=== PATIENT | female | born 1980 | race Caucasian/White ===

== ENCOUNTER 2016-11-14 22:57 | Observation (INO) ==
[2016-11-14 23:44] LABS: Basophils # 0.1 K/mcL (0.0-0.2); Basophils % 0.7 %; Eosinophils # 0.1 K/mcL (0.0-0.6); Hematocrit 37.1 % (35.3-44.9); Hemoglobin 12.2 g/dL (11.5-15.4); Immature Granulocytes % 0.3 % (0-4); Immature Platelets 2.6 % (1.1-6.1); Lymphocytes # 3.3 K/mcL (0.6-4.6); Lymphocytes % 33.5 %; Mean Corpuscular HGB Conc 32.9 g/dL (31.6-35.5); Mean Corpuscular Hemoglobin 26.9 pg (28.0-33.3); Mean Corpuscular Volume 81.9 fL (83.0-100.0); Mean Platelet Volume 9.3 fL (9.4-12.4); Monocytes # 0.7 K/mcL (0.0-1.3); Monocytes % 7.5 %; Neutrophils # 5.7 K/mcL (1.6-8.9); Platelet Count 292 K/mcL (140-400); Red Blood Count 4.53 M/mcL (3.82-4.97); Red Cell Distribution Width 12.8 % (11.5-14.5)
[2016-11-14 23:54] LABS: VBG HCO3 24.4 mEq/L (21-27); VBG PH 7.49 pH Units (7.32-7.42)
[2016-11-14 23:56] LABS: BUN/Creatinine Ratio 19 (6-26); Blood Urea Nitrogen 16 mg/dL (7-20); Calcium 9.5 mg/dL (8.6-10.8); Carbon Dioxide 22 mEq/L (19-29); Chloride 105 mEq/L (98-109); Glucose 91 mg/dL (70-99); Osmolality,Calculated 287 (280-300); Potassium 3.8 mEq/L (3.5-4.5); Sodium 138 mEq/L (136-145); eGFR For African Americans > 60 (> 60); eGFR For Non-African Americans > 60 (> 60)
--- NOTE | 2016-11-14 23:57 | Emergency Department Note ---
Disposition Clinical Impression: Bigeminy, Syncope and collapse Disposition: Admitted As Inpatient Condition: Fair Time of Disposition: 01:41 Syncope HPI - General Chief Complaint: ED Syncope Stated Complaint: passed out Time Seen by Provider: 11/14/16 23:16 Source: EMS Limitations: altered mental status Nursing Notes Reviewed: Yes Vital Signs Reviewed: Yes - History of Present Illness HPI Narrative: Patient is a 36 female who presents with an episode of witnessed syncope today. 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 Patient collapsed, landing on the left hip. She did not hit her head. Patient was accompanied by her work partner who witnessed the syncopal episode. Report is given to me by the patient's work partner. Patient lost consciousness for 10-15 minutes. Vitals were normal. EKG revealed bigeminy. Patient was awakened with verbal stimulus. Upon arousal , patient had a red face, and bloodshot eyes, and confusion. Patient denies loss of bowel function, loss of bladder function, tongue biting, or myoclonic jerks. Patient admits to one episode of dizziness today in which she states that she felt loss of balance. She states that she feels nauseated at this time. She denies fever, chills, dizziness, headache, blurry vision, chest pain , palpitations, racing heart, she shortness of breath, cough, wheeze, abdominal pain, vomiting, diarrhea, dysuria, hematuria, vaginal discharge. Patient has a known history of bigeminy. Patient states that she usually knows when she is going into bigeminy. Usually, she experiences substernal chest pain, left jaw and left neck pain. This episode was different from previous episodes of bigeminy in that she collapsed without warning. She follows with Dr. Saul, assistant professor of business at [facility]. Patient states that she had a prior ECHO and prior stress test at [facility]. Pt Subjective Complaint: loss of consciousness, felt faint Onset (ago): hour(s) Number of episodes: 1 Duration: minutes(s) (10-15) Description of Event: post-event confusion Prodromal Symptoms: lightheaded Witnessed: yes - by EMS Context: standing up Injuries Sustained Associated with Event: other (Left hip and left shoulder) Current Symptoms: lightheaded, nausea History: other (known history of transient bigeminy) Associated trauma secondary to event: No - Related Data Allergies Allergy/AdvReac Type Severity Reaction Status Date / Time Penicillins Allergy Vomiting Verified 11/14/16 23:12 shellfish derived Allergy Swelling Verified 11/14/16 23:13 of Lip/Tongue/Throat All systems ED: reviewed and negative except as stated. Constitutional: Reports: as per HPI Eyes: Reports: as per HPI ENT ED: Reports: as per HPI Cardiovascular: Reports: as per HPI Respiratory: Reports: as per HPI Gastrointestinal: Reports: as per HPI Genitourinary: Reports: as per HPI Musculoskeletal: Reports: as per HPI Integumentary: Reports: as per HPI Neurological: Reports: as per HPI Psychiatric: Reports: as per HPI Endocrine: Reports: as per HPI Hematological/Lymphatic: Reports: as per HPI Allergic/Immunologic: Reports: as per HPI Past Medical History - Past Medical History Medical history: Reports: other Psychiatric history: Reports: bipolar 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 Absent: tenderness, meningismus, lymphadenopathy, thyromegaly - Chest Chest inspection: Present: normal inspection, symmetric chest wall rise. Absent : tenderness - Respiratory Respiratory exam: Present: normal lung sounds bilaterally. Absent: respiratory distress, wheezes, stridor, accessory muscle use - Cardiovascular Cardiovascular exam: Present: regular rate, normal rhythm, +S1, +S2. Absent: systolic murmur, diastolic murmur - Abdominal Exam Abdominal exam: Present: soft, Non-Tender, normal bowel sounds. Absent: distention, guarding, rebound, rigidity - Extremities Exam Extremities exam: Present: normal inspection, full ROM. Absent: pedal edema - Back Exam Back exam: Present: normal inspection, full ROM - Neurological Exam Neurological exam: Present: alert, oriented X3, CN II-XII intact, reflexes normal - Psychiatric Psychiatric exam: Present: normal affect, normal mood - Skin Skin exam: Present: warm, dry, intact Course Vital Signs Temperature 98.3 F 11/14/16 22:59 Pulse Rate 73 11/14/16 22:59 Respiratory Rate 14 11/14/16 22:59 Blood Pressure 122/84 11/14/16 22:59 O2 Sat by Pulse Oximetry 100 11/14/16 22:59 Temperature 98.3 F 11/14/16 22:59 Pulse Rate 76 11/15/16 01:11 Respiratory Rate 18 11/15/16 02:08 Blood Pressure 108/61 11/15/16 02:08 O2 Sat by Pulse Oximetry 100 11/15/16 01:11 Oxygen Delivery Oxygen Delivery Room Air Syncope - MDM Narrative Medical decision making narrative: Fiorella is a 36-year-old female who presented with one episode of syncope. Patient lost consciousness for 10-15 minutes and had no loss of bowel or bladder function, tongue biting, myoclonic jerks. Patient was confused upon arousal. Patient presented with a rhythm strip from the EMS which demonstrated bigeminy. Should has known history of bigeminy. The concern is that she had an episode of ventricular arrhythmia leading to syncope. EKG obtained in the ED was normal sinus rhythm at a rate of 65 bpm, no evidence of ST segment or T- wave changes. Patient will be placed on telemetry and admitted to hospitalist, Dr. Harman for further evaluation. - Lab Data Lab results reviewed: Yes I reviewed the patient's lab results. Result diagrams: 11/14/16 23:36 11/14/16 23:36 Lab Results 11/14/16 11/14/16 11/14/16 Range/Units 23:36 23:36 23:36 WBC 9.9 (4.3-11.1) K/mcL RBC 4.53 (3.82-4.97) M/mcL Hgb 12.2 (11.5-15.4) g/dL Hct 37.1 (35.3-44.9) % MCV 81.9 L (83.0-100.0) fL MCH 26.9 L (28.0-33.3) pg MCHC 32.9 (31.6-35.5) g/dL RDW 12.8 (11.5-14.5) % Plt Count 292 (140-400) K/mcL MPV 9.3 L (9.4-12.4) fL Immature Gran % 0.3 (0-4) % Seg Neutrophils % 57.0 % Lymphocytes % 33.5 % Monocytes % 7.5 % Eosinophils % 1.0 % Basophils % 0.7 % Neutrophils # 5.7 (1.6-8.9) K/mcL Lymphocytes # 3.3 (0.6-4.6) K/mcL Monocytes # 0.7 (0.0-1.3) K/mcL Eosinophils # 0.1 (0.0-0.6) K/mcL Basophils # 0.1 (0.0-0.2) K/mcL Immature Plt Fraction 2.6 (1.1-6.1) % VBG pH (7.32-7.42) pH Units VBG pCO2 (41-51) mmHg VBG pO2 (25-40) mmHg VBG HCO3 (21-27) mEq/L Sodium 138 (136-145) mEq/L Potassium 3.8 (3.5-4.5) mEq/L Chloride 105 (98-109) mEq/L Carbon Dioxide 22 (19-29) mEq/L BUN 16 (7-20) mg/dL Creatinine 0.83 (0.57-1.11) mg/dL Est GFR ( Amer) > 60 (> 60) Est GFR (Non-Af Amer) > 60 (> 60) BUN/Creatinine Ratio 19 (6-26) Glucose 91 (70-99) mg/dL Calculated Osmolality 287 (280-300) Lactic Acid (0.5-2.2) mmol/L Calcium 9.5 (8.6-10.8) mg/dL Troponin I 0.01 (0-0.03) ng/mL Urine Color (Yellow) Urine Clarity (Clear) Urine pH (5.0-8.0) pH Units Ur Specific [place] (1.010-1.025) Urine Protein (Neg-Trace) mg/dL Urine Glucose (UA) (Normal) mg/dL Urine Ketones (Negative) mg/dL Urine Blood (Negative) Urine Nitrite (Negative) Urine Bilirubin (Negative) Urine Urobilinogen (Normal) mg/dL Ur Leukocyte Esterase (Negative) Urine Microscopic RBC (0-3) per hpf Urine Microscopic WBC (0-3) per hpf Ur Squamous Epith Cells (None-Few) per lpf Urine Bacteria (None-Few) per hpf Hyaline Casts (None-Few) per lpf Ur Culture Indicated? (NO) Salicylates < 5.0 L (15-30) mg/dL Urine Opiates Screen (Vnmmtw=300) ng/mL Acetaminophen < 1.0 L (10-30) mcg/mL Ur Barbiturates Screen (Utdshb=838) ng/mL Ur Phencyclidine Scrn (Cutoff=25) ng/mL Ur Amphetamines Screen (Hcqpag=3266) ng/mL U Benzodiazepines Scrn (Ntblib=837) ng/mL Urine Cocaine Screen (Cutoff= 300) ng/mL U Marijuana (THC) Screen (Cutoff = 50) ng/mL Ethyl Alcohol < 10 (0-10) mg/dL 11/14/16 11/14/16 11/15/16 Range/Units 23:36 23:36 00:15 WBC (4.3-11.1) K/mcL RBC (3.82-4.97) M/mcL Hgb (11.5-15.4) g/dL Hct (35.3-44.9) % MCV (83.0-100.0) fL MCH (28.0-33.3) pg MCHC (31.6-35.5) g/dL RDW (11.5-14.5) % Plt Count (140-400) K/mcL MPV (9.4-12.4) fL Immature Gran % (0-4) % Seg Neutrophils % % Lymphocytes % % Monocytes % % Eosinophils % % Basophils % % Neutrophils # (1.6-8.9) K/mcL Lymphocytes # (0.6-4.6) K/mcL Monocytes # (0.0-1.3) K/mcL Eosinophils # (0.0-0.6) K/mcL Basophils # (0.0-0.2) K/mcL Immature Plt Fraction (1.1-6.1) % VBG pH 7.49 H (7.32-7.42) pH Units VBG pCO2 32 L (41-51) mmHg VBG pO2 128 H (25-40) mmHg VBG HCO3 24.4 (21-27) mEq/L Sodium (136-145) mEq/L Potassium (3.5-4.5) mEq/L Chloride (98-109) mEq/L Carbon Dioxide (19-29) mEq/L BUN (7-20) mg/dL Creatinine (0.57-1.11) mg/dL Est GFR ( Amer) (> 60) Est GFR (Non-Af Amer) (> 60) BUN/Creatinine Ratio (6-26) Glucose (70-99) mg/dL Calculated Osmolality (280-300) Lactic Acid 0.5 (0.5-2.2) mmol/L Calcium (8.6-10.8) mg/dL Troponin I (0-0.03) ng/mL Urine Color Yellow (Yellow) Urine Clarity Cloudy A (Clear) Urine pH 6.5 (5.0-8.0) pH Units Ur Specific [place] 1.015 (1.010-1.025) Urine Protein Negative (Neg-Trace) mg/dL Urine Glucose (UA) Normal (Normal) mg/dL Urine Ketones Negative (Negative) mg/dL Urine Blood Negative (Negative) Urine Nitrite Negative (Negative) Urine Bilirubin Negative (Negative) Urine Urobilinogen Normal (Normal) mg/dL Ur Leukocyte Esterase Trace H (Negative) Urine Microscopic RBC 0-3 (0-3) per hpf Urine Microscopic WBC 3-5 H (0-3) per hpf Ur Squamous Epith Cells Many H (None-Few) per lpf Urine Bacteria Few (None-Few) per hpf Hyaline Casts None Seen (None-Few) per lpf Ur Culture Indicated? YES A (NO) Salicylates (15-30) mg/dL Urine Opiates Screen (Roguns=661) ng/mL Acetaminophen (10-30) mcg/mL Ur Barbiturates Screen (Jemdmj=700) ng/mL Ur Phencyclidine Scrn (Cutoff=25) ng/mL Ur Amphetamines Screen (Pifimg=3373) ng/mL U Benzodiazepines Scrn (Hbwbre=392) ng/mL Urine Cocaine Screen (Cutoff= 300) ng/mL U Marijuana (THC) Screen (Cutoff = 50) ng/mL Ethyl Alcohol (0-10) mg/dL 11/15/16 Range/Units 00:15 WBC (4.3-11.1) K/mcL RBC (3.82-4.97) M/mcL Hgb (11.5-15.4) g/dL Hct (35.3-44.9) % MCV (83.0-100.0) fL MCH (28.0-33.3) pg MCHC (31.6-35.5) g/dL RDW (11.5-14.5) % Plt Count (140-400) K/mcL MPV (9.4-12.4) fL Immature Gran % (0-4) % Seg Neutrophils % % Lymphocytes % % Monocytes % % Eosinophils % % Basophils % % Neutrophils # (1.6-8.9) K/mcL Lymphocytes # (0.6-4.6) K/mcL Monocytes # (0.0-1.3) K/mcL Eosinophils # (0.0-0.6) K/mcL Basophils # (0.0-0.2) K/mcL Immature Plt Fraction (1.1-6.1) % VBG pH (7.32-7.42) pH Units VBG pCO2 (41-51) mmHg VBG pO2 (25-40) mmHg VBG HCO3 (21-27) mEq/L Sodium (136-145) mEq/L Potassium (3.5-4.5) mEq/L Chloride (98-109) mEq/L Carbon Dioxide (19-29) mEq/L BUN (7-20) mg/dL Creatinine (0.57-1.11) mg/dL Est GFR ( Amer) (> 60) Est GFR (Non-Af Amer) (> 60) BUN/Creatinine Ratio (6-26) Glucose (70-99) mg/dL Calculated Osmolality (280-300) Lactic Acid (0.5-2.2) mmol/L Calcium (8.6-10.8) mg/dL Troponin I (0-0.03) ng/mL Urine Color (Yellow) Urine Clarity (Clear) Urine pH (5.0-8.0) pH Units Ur Specific [place] (1.010-1.025) Urine Protein (Neg-Trace) mg/dL Urine Glucose (UA) (Normal) mg/dL Urine Ketones (Negative) mg/dL Urine Blood (Negative) Urine Nitrite (Negative) Urine Bilirubin (Negative) Urine Urobilinogen (Normal) mg/dL Ur Leukocyte Esterase (Negative) Urine Microscopic RBC (0-3) per hpf Urine Microscopic WBC (0-3) per hpf Ur Squamous Epith Cells (None-Few) per lpf Urine Bacteria (None-Few) per hpf Hyaline Casts (None-Few) per lpf Ur Culture Indicated? (NO) Salicylates (15-30) mg/dL Urine Opiates Screen Negative (Rloumm=338) ng/mL Acetaminophen (10-30) mcg/mL Ur Barbiturates Screen Negative (Rqvikh=700) ng/mL Ur Phencyclidine Scrn Negative (Cutoff=25) ng/mL Ur Amphetamines Screen Negative (Viophg=8701) ng/mL U Benzodiazepines Scrn Negative (Nruzza=658) ng/mL Urine Cocaine Screen Negative (Cutoff= 300) ng/mL U Marijuana (THC) Screen Negative (Cutoff = 50) ng/mL Ethyl Alcohol (0-10) mg/dL - EKG Data EKG attestation: Yes I reviewed and interpreted this EKG. EKG results narrative: EKG was normal sinus rhythm at a rate of 65 bpm, no evidence of ST segment or T- wave changes. Patient presented with a rhythm strip from the EMS which demonstrated bigeminy. 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 She suddenly became completely unresponsive and was apparently unresponsive for an extended period of time. When backup EMS arrived she was in bigeminy when placed on the budget and policy analyst. She was in bigeminy on arrival here but this resolved prior to obtaining an EKG which was normal. She does have a prior history of bigeminy but states usually she has symptoms of feeling weak and lightheaded with some discomfort in her chest and neck whenever she goes into the bigeminy. Tonight she had no symptoms prior to the syncope. After the syncopal episode patient states that she just feels extremely tired and wiped out and groggy. She states she feels like she is in agreement With All the way. No headache. On examination patient is a well-developed well-nourished well-appearing female in no acute distress. She is alert and oriented 3. There is no cyanosis or diaphoresis. Chest is nontender to palpation. Breath sounds are clear and equal bilaterally. Heart regular rate and rhythm. Abdomen soft and nontender with normal bowel sounds. No gross focal neurological deficits. EKG normal. Labs reviewed and unremarkable. The hospitalist, Dr. Harman, was consulted and accepted admission of the patient.
[2016-11-15 00:08] LABS: Acetaminophen < 1.0 mcg/mL (10-30); Ethanol < 10 mg/dL (0-10); Salicylate < 5.0 mg/dL (15-30)
[2016-11-15 00:31] LABS: Bilirubin,Urine Negative (Negative); Blood,Urine Negative (Negative); Clarity,Urine Cloudy (Clear); Color,Urine Yellow (Yellow); Glucose,Urine (UA) Normal (Normal); Ketones,Urine Negative (Negative); Leukocyte Esterase,Urine Trace (Negative); Nitrite,Urine Negative (Negative); PH,Urine 6.5 pH Units (5.0-8.0); Protein,Urine Negative (Neg-Trace); Specific Gravity,Urine 1.015 (1.010-1.025); Urobilinogen,Urine Normal (Normal)
[2016-11-15 00:33] LABS: Bacteria,Urine Few per hpf (None-Few); Hyaline Casts,Urine None Seen per lpf (None-Few); RBC,Urine 0-3 per hpf (0-3); Squamous Epithelial Cell,Urine Many per lpf (None-Few)
[2016-11-15 00:37] LABS: Amphetamine Screen,Urine Negative ng/mL (Cutoff=1000); Barbiturate Screen,Urine Negative ng/mL (Cutoff=200); Benzodiazepines Screen,Urine Negative ng/mL (Cutoff=200); Cannabinoid Screen,Urine Negative ng/mL (Cutoff = 50); Cocaine Screen,Urine Negative ng/mL (Cutoff= 300); Opiate Screen,Urine Negative ng/mL (Cutoff=300); Phencyclidine Screen,Urine Negative ng/mL (Cutoff=25)
[2016-11-15] MEDS ORDERED: Naloxone 0.4 MG/ML INJ IVP PRN ×2 (07:34→08:32)
--- NOTE | 2016-11-15 08:35 | Internal Med History&Physical ---
Date of Encounter: 11/15/16 Time of Encounter: 08:33 Assessment and Plan (1) Syncope and collapse Current visit: Yes Status: Acute passed out for 10-15 mins yest. h/o bigeminy, unclear if she had any other arrhythmias that led to syncope she remaiened confused for sometime after regaining consciousness. will consult cardiology for any further intervention, will start low dose BB metoprolol of 12.5 mg bid for now along with aspirin for now until further recommendations from cardio. will also order ECHO. noted to be in and out of bigeminy on tele. monitor BP as it is borderline. strong family h/o bigeminy in father's side. no other signs or symptoms s/o seizures, denies preceding chest pain or sob, no other illness prior to the event. however will get a CT head to complete the work up. continue tele. (2) Bigeminy Current visit: Yes Status: Acute as above currently in NSR. Internal Medicine - H&P: HPI Chief complaint: syncope Admitted From: Home Plans for Post Hospital Care: Home History of present illness: Ms. Hernandez is a 36 year old female who presents with an episode of witnessed syncope today. 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 Patient collapsed, landing on the left hip. She did not hit her head. Patient was accompanied by her work partner who witnessed the syncopal episode. Patient lost consciousness for 10-15 minutes as per the partneer. Vitals were normal. EKG revealed bigeminy. Patient was awakened with verbal stimulus. Upon arousal, patient had a red face, and bloodshot eyes, and confusion. Patient denies loss of bowel function, loss of bladder function, tongue biting, or myoclonic jerks. Patient admits to one episode of dizziness today in which she states that she felt loss of balance. She states that she feels nauseated at this time. She denies fever, chills, dizziness, headache, blurry vision, chest pain, palpitations, racing heart, she shortness of breath, cough, wheeze, abdominal pain, vomiting, diarrhea, dysuria , hematuria, vaginal discharge. Patient has a known history of bigeminy. Patient states that she usually knows when she is going into bigeminy. Usually , she experiences substernal chest pain, left jaw and left neck pain. This episode was different from previous episodes of bigeminy in that she collapsed without warning. She follows with Dr. Saul, lease administration analyst at [facility]. Patient states that she had a prior ECHO and prior stress test at [facility]. She says she never needed any further testing and is being "observed". Past Med Surg Social Fam HX - Past Medical History Medical history: other Psychiatric history: bipolar - Past Surgical History Surgical History: cholecystectomy, other - Social History Smoking Status: Current every day smoker Smokeless Tobacco Status: No Alcohol use: none - Family History Father Adopted: [place]: [place] Age: 64 Family Member Ethnicity: Non- Living Status: Still Living Hx Family Cardiac Disorders: Yes (BIGEMINY; HIGH CHOLESTEROL) Hx Family Respiratory Disorders: No Hx Family Cancer: No Hx Family GI Disorders: Yes (GERD) Hx Family Genitourinary Disorders: No Hx Family Endocrine Disorder: No Hx Family Musculoskeletal Disorders: No Hx Family Neuromuscular Disorders: No Hx Family Neurologic Disorders: No Hx Family HEENT Disorders: No Hx Family Autoimmune Disorders: No Hx Family Reproductive Disorders: No Hx Family Psychosocial Disorders: No Hx Family Medical Disorders: No Internal Medicine - H&P: Meds Allergies Penicillins Allergy (Verified 11/14/16 23:12) Vomiting shellfish derived Allergy (Verified 11/14/16 23:13) Swelling of Lip/Tongue/Throat All Systems PM: A 10-system review of systems was performed and is negative for pertinent findings except as documented above in the HPI. - Constitutional Constitutional: as per HPI - EENT Eyes: as per HPI Ears: as per HPI Nose, mouth and throat: as per HPI - Breasts Breasts: as per HPI - Cardiovascular Cardiovascular ROS IM: as per HPI - Respiratory Respiratory: as per HPI - Gastrointestinal Gastrointestinal: as per HPI - Genitourinary Genitourinary: as per HPI Menstruation: as per HPI - Constitutional Vitals: Temp Pulse Resp BP Pulse Ox 98.7 F 63 15 121/72 98 11/15/16 07:37 11/15/16 07:37 11/15/16 07:37 11/15/16 07:37 11/15/16 02:40 General appearance: Present: A&O X 3, no acute distress Exam: neck- supple chest- b/l clear, no added sounds CVS-s1 and s2, no mr//g abd- soft, non tender, bs are present ex- no edema Internal Med - H&P Results - Labs CBC & Chem 7: 11/14/16 23:36 11/14/16 23:36
[2016-11-15] MEDS ORDERED: Ondansetron ODT 4 MG TAB.RAPDIS SL PRN (11:43)
[2016-11-15] MEDS ORDERED: *HR* Enoxaparin 30 MG/0.3 ML SYRINGE SQ ONE (11:46)
[2016-11-15] MEDS: Aspirin 81 MG TAB.CHEW PO SCH (13:00)
--- NOTE | 2016-11-15 16:15 | Cardiology Consult Note ---
Date of Encounter: 11/15/16 Time of Encounter: 16:00 Assessment and Plan (1) Syncope and collapse Current Visit: Yes Status: Acute Symptoms do not seem cardiac in etiology given altered mental status for 15 minutes after event. Consider neurology consult. Echocardiogram pending. (2) Bigeminy Current Visit: Yes Status: Acute Episodes of bigeminy noted per telemetry review. Reports she is symptomatic while in bigeminy--neck/chest discomfort. Recommend avoidance of caffeinated beverages, reports excess of 4 soda/coffees per day. Recommend betablocker, HM discharge to assess PVC burden, and close outpatient follow-up with Religion Department Chair at [facility]. Discussion w patient/family: The assessment and plan as outlined above was discussed with the patient and/or family members who expressed understanding and agreement. All questions were answered. Thank you for involving us in the care of your patient. Please call with any questions. The patient will be discussed with Dr. Bertha Horne; changes to be made accordingly. History of Present Illness Consult date: 11/15/16 Requesting physician: Joseph Pittman Consult reason: Syncope Chief complaint: Syncope History of present illness: Ms. Hernandez is a 36 year old female with PMH significant for bigeminy and bipolar disorder who presented to the ED after a syncope episode that occurred yesterday. 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 From her partner report she fell down and briefly lost consciousness, however remained "confused/ not with it" for up to 15 minutes. Past Med Surg Social Fam HX - Past Medical History Attestation: Yes The following information was validated with the patient. Source: patient Medical history: other (bigeminy) Psychiatric history: bipolar - Past Surgical History Surgical History: cholecystectomy, other - Social History Smoking Status: Current every day smoker Smokeless Tobacco Status: No Alcohol use: none - Family History Father Adopted: [place]: [place] Age: 64 Family Member Ethnicity: Non- Living Status: Still Living Hx Family Cardiac Disorders: Yes (BIGEMINY; HIGH CHOLESTEROL) Hx Family Respiratory Disorders: No Hx Family Cancer: No Hx Family GI Disorders: Yes (GERD) Hx Family Genitourinary Disorders: No Hx Family Endocrine Disorder: No Hx Family Musculoskeletal Disorders: No Hx Family Neuromuscular Disorders: No Hx Family Neurologic Disorders: No Hx Family HEENT Disorders: No Hx Family Autoimmune Disorders: No Hx Family Reproductive Disorders: No Hx Family Psychosocial Disorders: No Hx Family Medical Disorders: No Medications and Allergies Etodolac [Lodine] 400 mg PO BID 11/15/16 [History] Quetiapine Fumarate [Seroquel] 50 mg PO TID 11/15/16 [History] Sertraline [Zoloft] 50 mg PO DAILY 11/15/16 [History] Allergies Penicillins Allergy (Verified 11/14/16 23:12) Vomiting shellfish derived Allergy (Verified 11/14/16 23:13) Swelling of Lip/Tongue/Throat All Systems Review: A 10-system review of systems was performed and is negative for pertinent findings except as documented above in the HPI. - Cardiovascular Cardiovascular: as per HPI Physical Examination Vital Signs, Last 4 Hours Pulse BP 11/15/16 14:40 81 111/59 General: Conversant, No Apparent Distress HEENT: Atraumatic, Normocephaly, Mucus Membranes Moist Cardiac: Reg Rate and Rhythm, Normal S1 and S2 Lungs: Normal Breath Sounds, No Wheeze, Rales, Rhonchi Neuro: Alert and responsive, No focal deficits noted Abdomen: Soft, Non-Tender Skin: No rashes noted on visualized skin Musculoskeletal: No Chest Wall Tenderness Extremities: No Edema, Normal Pulses Results 11/14/16 23:36 11/14/16 23:36 Active Medications Aspirin (Aspirin) 81 mg PO DAILY [facility] Stop: 05/17/17 12:01 Last Admin: 11/15/16 13:00 Dose: 81 mg Enoxaparin Sodium (Lovenox) 30 mg SQ 0600 [facility] PRN Reason: Protocol Stop: 05/18/17 06:01 Metoprolol Tartrate (Lopressor) 12.5 mg PO BID [facility] Stop: 05/17/17 12:01 Last Admin: 11/15/16 13:00 Dose: 12.5 mg Naloxone HCl (Narcan) 0.4 mg IVP Q2MIN PRN PRN Reason: Opioid Reversal Stop: 05/17/17 08:33 Ondansetron HCl (Zofran Odt) 4 mg SL Q4HR PRN PRN Reason: Nausea And Vomiting Stop: 05/17/17 11:44 - Imaging and Cardiology Echo: pending Other Results: 12 hour tele: avg HR=76 SR. Episodes of bigeminy noted. - EKG Interpretation EKG results cardiology: personally reviewed Consult Discharge Plan - Plan Referrals: Jimbo Vides DO [Primary Care Provider] -
--- NOTE | 2016-11-15 18:00 | ECHO - Doppler Report ---
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 Normal left ventricular size and systolic function. Normal diastolic function of the left ventricle. Normal right ventricular size and function. No significant valvular dysfunction. Left Ventricular Wall Motion: Rest Echo Findings All wall segments showed normal motion. Findings: Study Quality * Technically adequate exam. ECG Findings * Sinus rhythm with PVCs. Left Ventricle * LVEF 65%. * Normal LV chamber size, wall thickness and function. * Normal left ventricular diastolic function. Right Ventricle * Normal right ventricular structure and function. Left Atrium * Normal left atrial size. Right Atrium * Normal right atrial size. Interatrial Septum * Interatrial septum not well evaluated. Aortic Valve * Trileaflet aortic valve. * Trileaflet aortic valve with normal function. * No aortic stenosis. * No aortic regurgitation. Mitral Valve * Normal mitral valve structure and function. * No mitral stenosis. * No mitral regurgitation. Tricuspid Valve * Normal tricuspid valve structure and function. * Trace tricuspid regurgitation. * Unable to estimate RVSP due to lack of TR jet. Pulmonic Valve * Pulmonic valve is not well visualized. Aorta * Normally sized aortic root. Pericardium * The pericardium appears normal. IVC * Normal IVC dimensions and inspiratory collapse. History Measurements: BP: 103/ 54 2D Normal Values RVIDd: 2.90 cm <2.7 cm IVSd: .80 cm 0.6 - 1.0 cm LVIDd: 4.60 cm 3.7 - 5.6 cm LVPWd: 1.00 cm 0.6 - 1.1 cm LVIDs: 3.50 cm 1.5 - 3.6 cm AO: 3.00 cm < 4.0 cm LA: 3.70 cm 2.0 - 4.0cm %FS: 23.90 cm >25 % LA volume: 48 Mitral Valve Dec Time:206.00 msec Peak E:.58 m/sec Peak A:.72 m/sec E/A Ratio:0.8 Tricuspid Valve TV Regurg Peak Grad: 16.00mmHg TV Regurg Peak Lee: 2.00m/sec Updated by Bertha Horne MD, [facility] on 11/15/2016 5:55:07 PM electronically signed on 11/15/2016 5:55:31 PM with status of Final Wall Motion Ocasio: 1=Normal, 2=Hypokinesis, 3=Akinesis, 4=Dyskinesis, 5=Aneurysmal, 6=Hyperkinetic, X=Not Visualized (Blank)=Missing
[2016-11-16 03:47] LABS: Basophils # 0.1 K/mcL (0.0-0.2); Basophils % 0.8 %; Eosinophils # 0.1 K/mcL (0.0-0.6); Eosinophils % 1.2 %; Hematocrit 36.3 % (35.3-44.9); Immature Granulocytes % 0.3 % (0-4); Lymphocytes # 3.4 K/mcL (0.6-4.6); Lymphocytes % 35.3 %; Mean Corpuscular HGB Conc 33.1 g/dL (31.6-35.5); Mean Corpuscular Hemoglobin 27.3 pg (28.0-33.3); Mean Corpuscular Volume 82.7 fL (83.0-100.0); Mean Platelet Volume 9.9 fL (9.4-12.4); Monocytes # 0.7 K/mcL (0.0-1.3); Monocytes % 7.3 %; Neutrophils # 5.3 K/mcL (1.6-8.9); Platelet Count 278 K/mcL (140-400); Red Blood Count 4.39 M/mcL (3.82-4.97); Segmented Neutrophils % 55.1 %
[2016-11-16 04:03] LABS: BUN/Creatinine Ratio 20 (6-26); Blood Urea Nitrogen 17 mg/dL (7-20); Carbon Dioxide 23 mEq/L (19-29); Chloride 108 mEq/L (98-109); Chol/HDL Ratio 3.7 (0-4.9); Cholesterol 161 mg/dL (< 200); Glucose 89 mg/dL (70-99); HDL Cholesterol 44 mg/dL (40-59); LDL Cholesterol,Calculated 104 mg/dL (0-99); Osmolality,Calculated 289 (280-300); Phosphorous 3.7 mg/dL (2.3-4.7); Potassium 3.8 mEq/L (3.5-4.5); Sodium 139 mEq/L (136-145); Triglycerides 65 mg/dL (< 150); eGFR For African Americans > 60 (> 60); eGFR For Non-African Americans > 60 (> 60)
[2016-11-16] MEDS ORDERED: *HR* Enoxaparin 30 MG/0.3 ML SYRINGE SQ SCH (06:00)
--- NOTE | 2016-11-16 11:21 | Neurology - Consult Note ---
Date of Encounter: 11/16/16 Time of Encounter: 11:09 Assessment and Plan (1) Syncope and collapse Current Visit: Yes Status: Acute Etiology unclear. Given the strong family history of cardiac issues, cardiac cause should be suspected. Long-term monitoring may be attempted to capture cardiac events, if any. Given the family history, transthyretin amyloidosis and cardiac conduction deficits may be entertained. Needs outpatient follow-up with Neurology (Dr. Lux). (2) Seizure Current Visit: Yes Status: Acute Possible seizure. But less likely. Semiology is not very suggestive. Outpatient EEG, inpatient MRI brain for completeness (3) TIA (transient ischemic attack) Current Visit: Yes Status: Acute Possible TIA versus stroke, however, deemed less likely. Possible posterior circulation stroke. Will get MRI. (4) Transient global amnesia Current Visit: Yes Status: Acute Possible transient global amnesia, given the presentation, but remains a diagnosis of exclusion. At times, MRI brain may show punctate stroke in left or right hippocampus. Will get MRI brain. 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 She remembers having an "oozy" feeling, but no convulsions, no urinary or fecal incontinence, or other automatisms, as reported by bystanders, including her EMS partner. She remembers coming out of it, but kept asking her where her was. She states that it took about few hours for her to come back to being normal. No palpitations, no chest pain, no shortness of breath prior to the event. Now she is back to her baseline. She had sex yesterday with her . No hot showers, no cold showers. She may have had an emotional interaction with the patient. Past Med Surg Social Fam HX - Past Medical History Medical history: other (bigeminy) Psychiatric history: bipolar - Past Surgical History Surgical History: cholecystectomy, other - Social History Smoking Status: Current every day smoker Smokeless Tobacco Status: No Alcohol use: none - Family History Father Adopted: [place]: [place] Age: 64 Family Member Ethnicity: Non- Living Status: Still Living Hx Family Cardiac Disorders: Yes (BIGEMINY; HIGH CHOLESTEROL) Hx Family Respiratory Disorders: No Hx Family Cancer: No Hx Family GI Disorders: Yes (GERD) Hx Family Genitourinary Disorders: No Hx Family Endocrine Disorder: No Hx Family Musculoskeletal Disorders: No Hx Family Neuromuscular Disorders: No Hx Family Neurologic Disorders: No Hx Family HEENT Disorders: No Hx Family Autoimmune Disorders: No Hx Family Reproductive Disorders: No Hx Family Psychosocial Disorders: No Hx Family Medical Disorders: No - Additional Family History Additional family history: grandmother through father's side with cardiac issues as well Medications and Allergies Etodolac [Lodine] 400 mg PO BID 11/15/16 [History] Quetiapine Fumarate [Seroquel] 50 mg PO TID 11/15/16 [History] Sertraline [Zoloft] 50 mg PO DAILY 11/15/16 [History] Allergies Penicillins Allergy (Verified 11/14/16 23:12) Vomiting shellfish derived Allergy (Verified 11/14/16 23:13) Swelling of Lip/Tongue/Throat All Systems: A 10-system review of systems was performed and is negative for pertinent findings except as documented above in the HPI. Physical Examination - Vital Signs Vital Signs: Initial Vital Signs Temp Pulse Resp BP Pulse Ox 98.3 F 73 14 122/84 100 11/14/16 22:59 11/14/16 22:59 11/14/16 22:59 11/14/16 22:59 11/14/16 22:59 Vital Signs - 24 hr 11/15/16 14:40 11/15/16 16:18 11/15/16 17:16 Temperature 97.9 F Pulse Rate 81 71 82 Pulse Rate [Orthostatic Lying Left Arm] Pulse Rate [Orthostatic Sitting Left Arm] Pulse Rate [Orthostatic Standing Left Arm] Respiratory Rate 16 Blood Pressure 111/59 110/73 103/54 Blood Pressure [Orthostatic Lying Left Arm] Blood Pressure [Orthostatic Sitting Left Arm] Blood Pressure [Orthostatic Standing Left Arm] O2 Sat by Pulse Oximetry 98 11/15/16 19:39 11/15/16 20:10 11/15/16 20:30 Temperature 98.3 F Pulse Rate 66 74 Pulse Rate [Orthostatic Lying Left Arm] Pulse Rate [Orthostatic Sitting Left Arm] Pulse Rate [Orthostatic Standing Left Arm] Respiratory Rate 18 Blood Pressure 105/67 Blood Pressure [Orthostatic Lying Left Arm] Blood Pressure [Orthostatic Sitting Left Arm] Blood Pressure [Orthostatic Standing Left Arm] O2 Sat by Pulse Oximetry 97 97 11/16/16 00:11 11/16/16 00:15 11/16/16 04:33 Temperature 97.8 F Pulse Rate 66 74 64 Pulse Rate [Orthostatic Lying Left Arm] Pulse Rate [Orthostatic Sitting Left Arm] Pulse Rate [Orthostatic Standing Left Arm] Respiratory Rate 14 14 Blood Pressure 98/56 104/67 Blood Pressure [Orthostatic Lying Left Arm] Blood Pressure [Orthostatic Sitting Left Arm] Blood Pressure [Orthostatic Standing Left Arm] O2 Sat by Pulse Oximetry 97 97 11/16/16 04:40 11/16/16 08:06 11/16/16 08:44 Temperature 98.3 F 97.8 F Pulse Rate 72 76 77 Pulse Rate [Orthostatic Lying Left Arm] Pulse Rate [Orthostatic Sitting Left Arm] Pulse Rate [Orthostatic Standing Left Arm] Respiratory Rate 16 Blood Pressure 102/71 103/64 Blood Pressure [Orthostatic Lying Left Arm] Blood Pressure [Orthostatic Sitting Left Arm] Blood Pressure [Orthostatic Standing Left Arm] O2 Sat by Pulse Oximetry 97 96 11/16/16 10:34 Temperature Pulse Rate Pulse Rate [Orthostatic Lying Left Arm] 64 Pulse Rate [Orthostatic Sitting Left Arm] 85 Pulse Rate [Orthostatic Standing Left Arm] 84 Respiratory Rate Blood Pressure Blood Pressure [Orthostatic Lying Left Arm] 105/68 Blood Pressure [Orthostatic Sitting Left Arm] 111/83 Blood Pressure [Orthostatic Standing Left Arm] 122/84 O2 Sat by Pulse Oximetry - Exam Exam: HEENT: normal CV: RRR Lungs: CTAB Abd: obese, soft Skin: no rashes - Neurologic Detailed motor examination: full strength in all major muscle groups Motor examination - right side: 5/5: deltoids, biceps, triceps, wrist flexion, wrist extension, fermenter helper, hip flexors, tibialis Anterior, quadriceps, toe extension (EHL), plantarflexion Motor examination - left side: 5/5: deltoids, biceps, triceps, wrist flexion, wrist extension, hip flexors, fermenter helper, quadriceps, tibialis Anterior, toe extension (EHL), plantarflexion Mental Status Examination: awake, alert, oriented to person, oriented to place, oriented to time, follows commands appropriately, answers questions appropriately, no agnosia, no aphasia, no aproxia Cranial nerve examination: PERRL, EOMI, visual rojo intact, corneal reflexes brisk symmetrically, sensory to face intact, mastication intact, no facial asymmetry is present, no dysarthria, hearing is intact symmetrically, soft palate elevates bilaterally upon phonation, gag reflex intact, flexes SCM and trapezius muscles symmetrically with full power, tongue protrudes midline, no atrophy or facial fasiculations present Cerebellar examination: no dysmetria, performs finger to nose and heel to cannon symmetrically without ataxia, no gait ataxia, no truncal ataxia, no difficulty with rapid alternating movements Results - Laboratory Findings CBC and BMP: 11/16/16 03:15 11/16/16 03:15 Abnormal lab findings: Abnormal lab results MCV 82.7 fL (83.0-100.0) L 11/16/16 03:15 MCH 27.3 pg (28.0-33.3) L 11/16/16 03:15 VBG pH 7.49 pH Units (7.32-7.42) H 11/14/16 23:36 VBG pCO2 32 mmHg (41-51) L 11/14/16 23:36 VBG pO2 128 mmHg (25-40) H 11/14/16 23:36 LDL Cholesterol, Calc 104 mg/dL (0-99) H 11/16/16 03:15 Urine Clarity Cloudy (Clear) A 11/15/16 00:15 Ur Leukocyte Esterase Trace (Negative) H 11/15/16 00:15 Urine Microscopic WBC 3-5 per hpf (0-3) H 11/15/16 00:15 Ur Squamous Epith Cells Many per lpf (None-Few) H 11/15/16 00:15 Ur Culture Indicated? YES (NO) A 11/15/16 00:15 Salicylates < 5.0 mg/dL (15-30) L 11/14/16 23:36 Acetaminophen < 1.0 mcg/mL (10-30) L 11/14/16 23:36 - Diagnostic Findings Additional findings: Head CT 11/15/16 11:49 IMPRESSION: No acute intracranial abnormality. D/ / Jose J Baxter MD / Jose J Baxter MD Interpreting Provider: Jose J Baxter MD Consult Discharge Plan - Plan Referrals: Jimbo Vides DO [Primary Care Provider] -
[2016-11-16 12:18] VITALS: BP 125/89
[2016-11-16] MEDS: Aspirin 81 MG TAB.CHEW PO SCH (12:21)
--- NOTE | 2016-11-16 12:36 | Electrocardiograph Report ---
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
--- NOTE | 2016-11-16 12:46 | Electrocardiograph Report ---
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
--- NOTE | 2016-11-16 15:44 | Discharge Summary ---
Date of Encounter: 11/16/16 Time of Encounter: 15:42 - Discharge Diagnosis (1) Syncope and collapse Priority: Primary Status: Acute (2) Bigeminy Priority: Primary Status: Acute - Discharge Medications Prescriptions: Aspirin 81 mg PO DAILY #30 tab.chew Metoprolol [Lopressor] 12.5 mg PO BID #60 tablet Home Medications: Etodolac [Lodine] 400 mg PO BID 11/15/16 [History] Quetiapine Fumarate [Seroquel] 50 mg PO TID 11/15/16 [History] Sertraline [Zoloft] 50 mg PO DAILY 11/15/16 [History] Aspirin 81 mg PO DAILY #30 tab.chew 11/16/16 [Rx] Metoprolol [Lopressor] 12.5 mg PO BID #60 tablet 11/16/16 [Rx] Allergies/Adverse Reactions: Allergies Penicillins Allergy (Verified 11/14/16 23:12) Vomiting shellfish derived Allergy (Verified 11/14/16 23:13) Swelling of Lip/Tongue/Throat Procedures/tests Complete & Pending: Procedures Performed prior 72 hours Category Date Time Status CT head/brain wo con [CT] Routine Cat Scan 11/15/16 11:49 Completed ECG 12 lead ECG [ECG] Stat Y 11/15/16 11:07 Completed EV echocardiogram Routine Y 11/15/16 11:48 Completed Date of admission: 11/15/16 02:01 Primary care physician: Jimbo Vides Consults: 11/15/16 07:47 Consult to Cardiology [CONS] Routine Comment: Consulting Provider: Card[facility] [place] Reason for Consult: please evaluate this patient with h/o bigeminy presenting with syncope. Call Completed: No 11/15/16 16:56 Consult to Neurology [CONS] Routine Consulting Provider: Neurology [facility] Reason for Consult: please evaluate for syncope with post ictal confusion, first episode to r/o seizures in this patinet . radha tilley Call Completed: No Discharging clinician: Joseph Pittman Anticipated date of discharge: 11/16/16 - Patient Status Disposition: Home, Self-Care Condition: Fair Functional capacity at discharge: independent ambulation Overall status at discharge: patient is back to baseline - Discharge Instructions Instructions: Metoprolol (By mouth), Aspirin (By mouth), Electroencephalogram ( DC), Electromyography (DC), Syncope (DC), Magnetic Resonance Imaging (DC) Follow Up With: Jimbo Vieds, [Primary Care Provider] - - Diet and Activity Activity: resume usual activities as tolerated Diet: advance to your usual diet Interval History: Ms. Hernandez is a 36 year old female with PMH significant for bigeminy and bipolar disorder who presented to the ED after a syncope episode that occurred yesterday. 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 From her partner report she fell down and briefly lost consciousness, however remained "confused/ not with it" for up to 15 minutes. cardio was conuslted and recommended that Symptoms do not seem cardiac in etiology given altered mental status for 15 minutes after event. Recommend avoidance of caffeinated beverages, reports excess of 4 soda/coffees per day. Recommend betablocker, HM discharge to assess PVC burden, and close outpatient follow-up with [facility]. neuro was also consulted for alternate dx to r/o seizures. as per neurology , Possible seizure. But less likely. Semiology is not very suggestive. Outpatient EEG, inpatient MRI brain for completeness. Patient remained stable, denies any chest pain or shortness of breath, no dizziness or syncope while inpatient. At this time patient wishes to be discharged and complete MRI of the brain as outpatient. Patient will follow-up with her PCP for MRI results and if needed be referred to neurology. Hospital course: Ms. Hernandez is a 36 year old female Time spent discussing smoking cessation with patient: more than 10 minutes - Time Spent with Patient Total time spent providing and/or coordinating discharge services: Greater than 30 minutes - Constitutional Vitals: Temp Pulse Resp BP Pulse Ox 98.3 F 75 16 125/89 95 11/16/16 12:08 11/16/16 14:05 11/16/16 12:08 11/16/16 12:08 11/16/16 12:08 General appearance: Present: A&O X 3, no acute distress Exam: General: Conversant, No Apparent Distress HEENT: Atraumatic, Normocephaly, Mucus Membranes Moist Cardiac: Reg Rate and Rhythm, Normal S1 and S2 Lungs: Normal Breath Sounds, No Wheeze, Rales, Rhonchi Neuro: Alert and responsive, No focal deficits noted Abdomen: Soft, Non-Tender Skin: No rashes noted on visualized skin Musculoskeletal: No Chest Wall Tenderness Extremities: No Edema, Normal Pulses
== END 2016-11-16 16:55 | disposition home or self-care (01) ==
LOC: 2NNU 22:57 → EMEROO 22:57 → 2NNU 11-15 02:18
PROVIDERS: ADMIT Internal Medicine; ATTEND Internal Medicine

== ENCOUNTER 2017-02-25 22:34 | Inpatient (IN) ==
[2017-02-25] MEDS ORDERED: hydrOXYzine pamoate 25 MG CAPSULE PO PRN (22:48)
[2017-02-25] MEDS ORDERED: *HR* LORazepam 1 MG TABLET PO PRN (22:48)
[2017-02-25] MEDS ORDERED: *HR* LORazepam 2 MG/ML VIAL IM PRN (22:48)
[2017-02-25] MEDS ORDERED: MOM Conc 10 ML UD.LIQ PO PRN (22:48)
[2017-02-25] MEDS ORDERED: Mag Hydrox/Al Hydrox/Simeth 30 ML UDC PO PRN (22:48)
[2017-02-25] MEDS ORDERED: Haloperidol Lactate 5 MG/ML VIAL IM PRN (22:48)
[2017-02-25] MEDS: Ibuprofen 400 MG TABLET PO PRN (23:57)
--- NOTE | 2017-02-26 12:02 | Psychiatry History & Physical ---
Date of Encounter: 02/26/17 Time of Encounter: 11:00 History of Present Illness Patient Stated Chief Complaint: Suicidal ideation Medicare Admission Attestation: For traditional Medicare patients the provided hospital inpatient services are reasonable and necessary and in the case of services not specified as inpatient -only under 42 CFR 419.22 (n), that they are appropriately provided as inpatient services in accordance 42 CFR 412.3. For Critical Access Hospital the patient may reasonably be expected to be discharged or transferred to a hospital within 96 hours after admission to the Critical Access Hospital. Admitted From: Hospital to Hospital Transfer ([facility]) History of Present Illness: Ms. Hernandez is a 37 year old female admitted from [facility] for evaluation of depression and suicidal ideation. Patient has history of bipolar disorder with past 5 years, has been treated with medication under care of her of PCP. She had one hospitalization at [facility] 5 years ago. Patient reports increase in anxiety, mood swings, depressed more, irritability and suicidal ideation. Patient is stressed out by work and coworkers also having some marital issues. 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 She denied any use of alcohol or drug use. She is seeing a counselor on a regular basis. This is her second psychiatric hospitalization. She will complain of weight gain and poor sleep and mood swings. Past Med Surg Social Fam HX - Past Medical History Medical history: other - Past Psychiatric History Psychiatric history: Reports: bipolar, depression, previous psychiatric hospitalization Past psychiatric history details: Hospitalization at [facility] 5 years ago. - Past Surgical History Surgical History: cholecystectomy, other - Social History Smoking Status: Never smoker Smokeless Tobacco Status: No Alcohol use: none Drug use: none - Family History Father Adopted: No Family Member Ethnicity: Non- Living Status: Still Living Hx Family Cardiac Disorders: Yes (BIGEMINY; HIGH CHOLESTEROL) Hx Family Respiratory Disorders: No Hx Family Cancer: No Hx Family GI Disorders: Yes (GERD) Hx Family Endocrine Disorder: No Hx Family Neuromuscular Disorders: No Hx Family Neurologic Disorders: No Hx Family HEENT Disorders: No Hx Family Autoimmune Disorders: No Medications & Allergies Quetiapine Fumarate [Seroquel] 100 mg PO TID 11/15/16 [History] Sertraline [Zoloft] 100 mg PO DAILY 11/15/16 [History] 3 Allergy/AdvReac Type Severity Reaction Status Date / Time Penicillins Allergy Vomiting Verified 11/14/16 23:12 shellfish derived Allergy Swelling Verified 11/14/16 23:13 of Lip/Tongue/Throat tuberculin,PPD,multi-puncture Allergy Hives Verified 02/25/17 22:43 Review of Systems Psychiatric: Reports: depression, anxiety, suicidal ideation, irritability, mood swings Mental Status Exam Patient orientation: Yes Person, Yes Time, Yes Place Level of alertness: Alert Patient appearance: Appropriate, Well Groomed, Obese Behavior: calm, cooperative, anxious, talkative Psychomotor activity: Normal Eye contact: Maintains Eye Contact Mood description: Euthymic/stable, Depressed, Labile Affect description: congruent with mood, labile Speech pattern: Normal rate, Normal rhythm, Normal tone, Excessive Speech volume: Normal Thought process: Linear, Goal Oriented Thought content: No Suicidal ideation, No Homicidal ideation, No Overt delusions Perceptual disturbances: No Auditory hallucinations, No Visual hallucinations Attention span: Capable of Focused Attention Memory description: Grossly Intact Patient reliability: Reliable Historian Intelligence estimate: Average Judgment: Limited Insight: Partial Results - Vital Signs Vital signs: Temp Pulse Resp BP 97.8 F 80 18 111/81 02/26/17 08:48 02/26/17 08:48 02/26/17 08:48 02/26/17 08:48 Assessment and Plan (1) Bipolar 1 disorder, depressed, severe Current visit: Yes Status: Acute Plan: Admit inpatient for safety and stabilization, Close observation, Suicide Precautions per unit protocol, Encourage participation in unit milieu, Group Therapy, Monitor sleep, Monitor appetite Additional Plan: Discussed with patient adding mood stabilizer Topamax 50 mg daily, benefits and side effects were discussed she is agreeable to start and will monitor Risks, benefits, side effects, alternatives discussed w/pt: Yes Patient agreeable to treatment: Yes
[2017-02-26] MEDS: Topiramate 25 MG TABLET PO SCH (13:54)
[2017-02-27] MEDS: Topiramate 25 MG TABLET PO SCH (08:40)
--- NOTE | 2017-02-27 15:34 | Psychiatry Progress Note ---
Date of Encounter: 02/27/17 Time of Encounter: 15:00 Subjective Interval history: Patient seen for follow-up. She tolerated Topamax and denies any side effects she reports improved sleep and denied any irritability or mood swings. She participated in groups and activities and interact with peers and staff. I had a long discussion was held regarding bipolar disorder and mood stabilization and the role of medication and different coping mechanism that help individual to adjust to their environment under different conditions. She is denying any suicidal thoughts and able to consider alternative and options to address her situation and difficulties. Review of Systems Psychiatric: Reports: depression, anxiety, suicidal ideation, irritability, mood swings Objective: Exam Patient orientation: Yes Person, Yes Time, Yes Place Level of alertness: Alert Patient appearance: Appropriate, Well Groomed Behavior: calm, cooperative, talkative Psychomotor activity: Normal Eye contact: Maintains Eye Contact Mood description: Euthymic/stable, Labile Affect description: congruent with mood, full range Speech pattern: Normal rate, Normal rhythm, Normal tone, Excessive Speech volume: Normal Thought process: Linear, Goal Oriented Thought content: No Suicidal ideation, No Homicidal ideation, No Overt delusions Perceptual disturbances: No Auditory hallucinations, No Visual hallucinations Judgment: Fair Insight: Partial Results - Vital Signs Vital Signs: Temp Pulse Resp BP 97.8 F 76 16 113/76 02/27/17 09:00 02/27/17 09:00 02/27/17 09:00 02/27/17 09:00 Assessment and Plan (1) Bipolar 1 disorder, depressed, severe Current visit: Yes Status: Acute Plan: Continue hospitalization, Close observation, Suicide Precautions per unit protocol, Encourage participation in unit milieu, Group Therapy, Monitor sleep, Monitor appetite Risks, benefits, side effects, alternatives discussed w/pt: Yes Patient agreeable to treatment: Yes Consult Discharge Plan - Plan Referrals: [facility] [place] [Outside] - 03/27/17 2:00 pm (The above appointment is with Corina Hamlin CNP for outpatient psychiatric assessment and medication management services. If Dr. Zeina Dove's credentialing goes through before this appointment, you will be re-scheduled with her. If not, you will be able to see Corina until Dr. Dove's credentialing is in place. Please arrive 15 minutes early to complete paperwork. Please bring your insurance card, photo ID and medications in their original bottles. If you do not have insurance, bring proof of income to apply for the sliding fee scale. If you are unable to keep this appointment, 24 hour business notice of cancellation is expected. This is the first available appointment. You may contact the office regularly to check for cancellations that may allow you to be seen sooner. ) [facility] [Outside] - 03/05/17 9:00 am (The above appointment is with Nelia Mora for mental health counseling services.)
[2017-02-28] MEDS: Topiramate 25 MG TABLET PO SCH (08:50)
--- NOTE | 2017-02-28 11:51 | Psychiatry Progress Note ---
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 Patient reports that his this is making her anxious to return to work. Patient reports she slept well and is eating well and is intending all groups. Patient reports no current side effects to medication and patient has been med compliant Review of Systems Psychiatric: Reports: depression, anxiety, irritability, mood swings Results - Vital Signs Vital Signs: Temp Pulse Resp BP 98.0 F 79 16 112/75 02/28/17 08:57 02/28/17 08:57 02/28/17 08:57 02/28/17 08:57 Assessment and Plan (1) Bipolar 1 disorder, depressed, severe Current visit: Yes Status: Acute Plan: Continue hospitalization, Encourage participation in unit milieu, Group Therapy, Monitor sleep, Monitor appetite Additional Plan: Discussed with patient adding mood stabilizer Topamax 50 mg daily, benefits and side effects were discussed she is agreeable to start and will monitor Risks, benefits, side effects, alternatives discussed w/pt: Yes Patient agreeable to treatment: Yes Consult Discharge Plan - Plan Referrals: Carlos Maxwell [facility] [place] [Outside] - 03/27/17 2:00 pm (The above appointment is with Corina Hamlin CNP for outpatient psychiatric assessment and medication management services. If Dr. Zeina Dove's credentialing goes through before this appointment, you will be re-scheduled with her. If not, you will be able to see Corina until Dr. Dove's credentialing is in place. Please arrive 15 minutes early to complete paperwork. Please bring your insurance card, photo ID and medications in their original bottles. If you do not have insurance, bring proof of income to apply for the sliding fee scale. If you are unable to keep this appointment, 24 hour business notice of cancellation is expected. This is the first available appointment. You may contact the office regularly to check for cancellations that may allow you to be seen sooner. ) [facility] [Outside] - 03/05/17 9:00 am (The above appointment is with Nelia Mora for mental health counseling services.)
[2017-03-01] MEDS: Topiramate 25 MG TABLET PO SCH (08:29)
--- NOTE | 2017-03-01 17:37 | Psychiatry Progress Note ---
Date of Encounter: 03/01/17 Time of Encounter: 17:35 Subjective Interval history: Patient seen and evaluated patient was calm and cooperative with the evaluation patient reports that she is doing much better since admission she reports feeling that the Topamax is really helping with her mood stabilization she reports she has been in contact with her family and they feel she is doing well as well. Patient reports she is sleeping well and eating well patient has been med compliant no side effects were noted with medication patient reports she is eager for discharge and reports she is looking forward to following up outpatient for outpatient services she is hoping that will be set up here. Patient denied suicidal ideations denied any self-harm. Review of Systems Psychiatric: Reports: depression, anxiety, irritability, mood swings Objective: Exam Patient orientation: Yes Person, Yes Time, Yes Place, Yes Circumstance Level of alertness: Alert Patient appearance: Appropriate Behavior: calm Psychomotor activity: Normal Eye contact: Maintains Eye Contact Mood description: Euthymic/stable Affect description: congruent with mood Speech pattern: Normal rate, Non-verbal Thought process: Intact Thought content: Yes Intact Judgment: Fair Insight: Full Results - Vital Signs Vital Signs: Temp Pulse Resp BP 97.8 F 87 16 111/73 03/01/17 09:00 03/01/17 09:00 03/01/17 09:00 03/01/17 09:00 Assessment and Plan (1) Bipolar 1 disorder, depressed, severe Current visit: Yes Status: Acute Additional Plan: Discussed with patient adding mood stabilizer Topamax 50 mg daily, benefits and side effects were discussed she is agreeable to start and will monitor Risks, benefits, side effects, alternatives discussed w/pt: Yes Patient agreeable to treatment: Yes Consult Discharge Plan - Plan Referrals: [facility] [place] [Outside] - 03/27/17 2:00 pm (The above appointment is with Corina Hamlin CNP for outpatient psychiatric assessment and medication management services. If Dr. Zeina Dove's credentialing goes through before this appointment, you will be re-scheduled with her. If not, you will be able to see Corina until Dr. Dove's credentialing is in place. Please arrive 15 minutes early to complete paperwork. Please bring your insurance card, photo ID and medications in their original bottles. If you do not have insurance, bring proof of income to apply for the sliding fee scale. If you are unable to keep this appointment, 24 hour business notice of cancellation is expected. This is the first available appointment. You may contact the office regularly to check for cancellations that may allow you to be seen sooner. ) [facility] [Outside] - 03/05/17 9:00 am (The above appointment is with Nelia Mora for mental health counseling services.)
[2017-03-01] MEDS: Ibuprofen 400 MG TABLET PO PRN (17:44)
[2017-03-02] MEDS: Topiramate 25 MG TABLET PO SCH (09:50)
[2017-03-02 09:58] VITALS: BP 106/73
--- NOTE | 2017-03-02 13:58 | Discharge Summary ---
Date of Encounter: 03/02/17 Time of Encounter: 13:56 Diagnosis - Discharge Diagnosis (1) Bipolar 1 disorder, depressed, severe Status: Resolved Medications - Discharge Medications Prescriptions: Quetiapine Fumarate [Seroquel] 100 mg PO HS #30 tab Sertraline [Zoloft] 100 mg PO HS #30 tab Topiramate [Topamax] 50 mg PO DAILY #60 tab Quetiapine Fumarate [Seroquel] 100 mg PO HS #30 tab 03/02/17 [Rx] Sertraline [Zoloft] 100 mg PO HS #30 tab 03/02/17 [Rx] Topiramate [Topamax] 50 mg PO DAILY #60 tab 03/02/17 [Rx] 3 Allergy/AdvReac Type Severity Reaction Status Date / Time Penicillins Allergy Vomiting Verified 11/14/16 23:12 shellfish derived Allergy Swelling Verified 11/14/16 23:13 of Lip/Tongue/Throat tuberculin,PPD,multi-puncture Allergy Hives Verified 02/25/17 22:43 Provider Date of admission: 02/25/17 22:39 Primary care physician: PCP NONE Discharging clinician: Elke Morrow Assessment and Plan - Patient/Caregiver Discharge Instructions Activity: resume usual activities as tolerated Diet: regular diet - Follow up Plan Follow up with: Carlos Maxwell [facility] [place] [Outside] - 03/27/17 2:00 pm (The above appointment is with Corina Hamlin CNP for outpatient psychiatric assessment and medication management services. If Dr. Zeina Dove's credentialing goes through before this appointment, you will be re-scheduled with her. If not, you will be able to see Corina until Dr. Dove's credentialing is in place. Please arrive 15 minutes early to complete paperwork. Please bring your insurance card, photo ID and medications in their original bottles. If you do not have insurance, bring proof of income to apply for the sliding fee scale. If you are unable to keep this appointment, 24 hour business notice of cancellation is expected. This is the first available appointment. You may contact the office regularly to check for cancellations that may allow you to be seen sooner. ) [facility] [Outside] - 03/05/17 9:00 am (The above appointment is with Nelia Mora for mental health counseling services.) Overall status at discharge: Stable Disposition: Home, Self-Care Hospital Course Hospital course: Ms. Hernandez is a 37 year old female admitted for anxiety and depression and mood swings. Patient was admitted to [facility] inpatient psychiatric unit for safety and stabilization. Patient's home medications were continued and reviewed. Throughout the hospital course patient was started on Topamax to assist with mood symptom stabilization and patient's Zoloft was increased to 100 and patient was continued on Seroquel 400 mg at bedtime for mood stabilization and sleep. Patient did not exhibit any side effects to medication he was med compliant while he was on the unit patient participated in groups and was socializing with peers. Patient's sleep and appetite was fair. Patient denied any suicide or homicide ideations. Patient denied any thoughts of self-harm. Patient reports being interested in outpatient medication management and counseling. Patient was discussed for discharge due to patient not being a threat to herself or anyone else. tie worker did make contact with patient' s family. Patient will be returning home on discharge. Time spent discussing smoking cessation with patient: 3 to 10 minutes Does patient wish to continue nicotine replacement upon disc: No - Time Spent with Patient Total time spent providing and/or coordinating discharge services: Less than 30 minutes Quality - Multiple Antipsychotics Patient discharged on 2 or more antipsychotic medications: No Procedures - Procedures Procedures: Medication Management, Supportive Therapy, Group Therapy, Psychoeducational Therapy Mental Status Exam - Mental Status Exam Patient orientation: Yes Person, Yes Time, Yes Place, Yes Circumstance Level of alertness: Alert Patient appearance: Appropriate Behavior: calm Psychomotor activity: Normal Eye contact: Maintains Eye Contact Mood description: Euthymic/stable Affect description: congruent with mood Speech pattern: Normal rate Speech Volume: Normal Thought process: Intact Thought Content: Yes Intact Judgment: Fair Insight: Full
== END 2017-03-02 16:55 | disposition home or self-care (01) | DRG 885 ==
LOC: 1ANU 22:39 → SUATTDRO 22:39
PROVIDERS: ADMIT Psychiatry & Neurology Psychiatry; ATTEND Psychiatry & Neurology Psychiatry